=== PATIENT | male | born 2000 | race Two or more races ===

== ENCOUNTER 2023-09-04 15:04 | Emergency (ER) | payer OTHER ==
[~2023-09-04] VITALS: Ht 165.1 cm; Wt 68.2 kg
[2023-09-04 15:37] VITALS: TEMP 98.2
[2023-09-04] MEDS ORDERED: IBUP-1493 PO (15:56)
[2023-09-04] MEDS ORDERED: IBUPROFEN 600 MG TABLET PO ONE (16:00)
[2023-09-04] MEDS ORDERED: ACETAMINOPHEN 500 MG TABLET PO ONE (16:00)
[2023-09-04 20:00] VITALS: BP 114/74; PULSE 73; RESP 17
== END 2023-09-04 22:59 | disposition home or self-care (01) ==
LOC: EMS 15:09
DX: M25.562 Pain in left knee (principal); M25.572 Pain in left ankle and joints of left foot
CPT/HCPCS: 99284